=== PATIENT | male | born 1935 | race Caucasian/White ===

== ENCOUNTER → 2017-09-05 | Outpatient (CLI) | payer MEDICARE ==
[~2017-09-05] MED LIST: ALLOPURINOL100 MG PO; BENAZEPRIL HCL40 MG PO; CLONIDINE HCL0.1 MG PO; COLCHICINE0.6 MG PO; COZAAR50 MG PO; HYDRALAZINE HCL50 MG PO; INDOCIN50 MG PO; KEFLEX500 MG PO; METRONIDAZOLE500 MG PO; MILK OF MA400 MG/5 M PO; NEURONTIN100 MG PO; NORCO 5-325 TA1 EACH PO; NORVASC10 MG PO; TYLENOL WITH C1 EACH PO; VITAMIN C500 M1 PO; XARELTO15 MG PO; [UNRECOGNIZED DRUG - OTHER]
== END ==
LOC: RAD 14:11
DX: M79.89 Other specified soft tissue disorders (principal); M79.604 Pain in right leg
CPT/HCPCS: 93971

== ENCOUNTER 2017-09-11 17:20 | Emergency (ER) | payer MEDICARE ==
[~2017-09-11] VITALS: Ht 182.9 cm; Wt 93.4 kg
[2017-09-11] MEDS ORDERED: LORAZEPAM INJ 2 MG/ML VIAL IV ONE (18:00)
[2017-09-11] MEDS ORDERED: ASPIRIN 81 MG CHEW TAB PO ONE (18:00)
[2017-09-11 18:06] LABS: BASOPHILS % 0.6 % (0.0-1.0); EOSINOPHILS # (AUTO) 0.2 (0.0-0.4); EOSINOPHILS % 2.8 % (0.0-6.0); HEMATOCRIT 39.8 % (38.2-49.6); HEMOGLOBIN 13.5 g/dL (14.0-18.0); LYMPHOCYTES # (AUTO) 1.4 (1.0-3.2); LYMPHOCYTES % 21.7 % (18.0-39.1); MEAN CORPUSCULAR HEMOGLOBIN 32.7 pg (28-32); MEAN CORPUSCULAR HGB CONC 33.9 g/dL (31-35); MEAN CORPUSCULAR VOLUME 96.4 fL (81-99); MONOCYTES # (AUTO) 0.7 (0.2-0.8); MONOCYTES % 10.2 % (4.4-11.3); NEUTROPHILS # (AUTO) 4.1 (2.1-6.9); NEUTROPHILS % 64.4 % (38.7-80.0); PLATELET COUNT 163 x10e3/uL (140-360); RED BLOOD COUNT 4.13 x10e6/uL (4.3-5.7); RED CELL DISTRIBUTION WIDTH 14.5 % (11.7-14.4)
[2017-09-11 18:10] LABS: INR 1.54; PROTHROMBIN TIME 17.4 seconds (11.9-14.5)
[2017-09-11 18:11] LABS: PARTIAL THROMBOPLASTIN TIME 37.7 seconds (23.8-35.5)
[2017-09-11 18:20] LABS: ALBUMIN 3.5 g/dL (3.5-5.0); ALBUMIN/GLOBULIN RATIO 1.2 (0.8-2.0); ANION GAP 12.8 mmol/L (8-16); CALCIUM 9.8 mg/dL (8.4-10.2); CREATININE, SERUM 1.38 mg/dL (0.72-1.25); POTASSIUM 3.8 mmol/L (3.5-5.1)
--- NOTE | 2017-09-11 20:02 | Diagnostic Imaging Report ---
RIGHT ANKLE - 3 VIEWS HISTORY: Pain COMPARISON: None available. FINDINGS: Suboptimal positioning partially limits the evaluation. Bones: Chronic appearing healed avulsion fracture deformity at the tip of the lateral malleolus. Moderate plantar calcaneal and dorsal calcaneal enthesophytes. Mild varus alignment of the tibiotalar joint. Joints: Multifocal degenerative changes, most notably moderate of the tibiotalar joint. Soft tissues: Nonspecific soft tissue swelling. IMPRESSION: 1. Nonspecific soft tissue swelling. 2. 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 3. Chronic calcaneal enthesopathy. Signed by: Dr. Vignesh Pulido D.O., M.M.M. on 09/11/2017 7:58 PM
== END 2017-09-11 21:46 | disposition home or self-care (01) ==
LOC: ER 17:20
DX: S86.111A Strain of other muscle(s) and tendon(s) of posterior muscle group at lower leg level, right leg, initial encounter (principal); W17.2XXA Fall into hole, initial encounter; Z79.01 Long term (current) use of anticoagulants; Z95.5 Presence of coronary angioplasty implant and graft; Z95.0 Presence of cardiac pacemaker; Y93.H2 Activity, gardening and landscaping; Y92.096 Garden or yard of other non-institutional residence as the place of occurrence of the external cause
CPT/HCPCS: 36415; 80053; 83605; 85025; 85610; 85730; 99284

== ENCOUNTER → 2017-11-27 | Day surgery (SDC) | payer MEDICARE ==
[2017-11-22 09:26] LABS: BASOPHILS # (AUTO) 0.1 (0.0-0.1); BASOPHILS % 0.8 % (0.0-1.0); EOSINOPHILS # (AUTO) 0.1 (0.0-0.4); EOSINOPHILS % 2.1 % (0.0-6.0); HEMATOCRIT 41.8 % (38.2-49.6); HEMOGLOBIN 14.3 g/dL (14.0-18.0); LYMPHOCYTES # (AUTO) 1.5 (1.0-3.2); MEAN CORPUSCULAR HEMOGLOBIN 32.8 pg (28-32); MEAN CORPUSCULAR HGB CONC 34.2 g/dL (31-35); MEAN CORPUSCULAR VOLUME 95.9 fL (81-99); MONOCYTES # (AUTO) 0.7 (0.2-0.8); MONOCYTES % 10.6 % (4.4-11.3); NEUTROPHILS # (AUTO) 4.1 (2.1-6.9); NEUTROPHILS % 63.2 % (38.7-80.0); PLATELET COUNT 162 x10e3/uL (140-360); RED BLOOD COUNT 4.36 x10e6/uL (4.3-5.7); RED CELL DISTRIBUTION WIDTH 14.3 % (11.7-14.4)
[~2017-11-27] MED LIST changes: +AMLODIPINE BESYL5 MG PO; +FENTANYL CITRATE/PF 100MCG/2 ML INJ ONE; +LIDOCAINE HCL 2% LOCAL INJ 5 ML SDV VIAL INJ ONE; +PROPOFOL IV EMULSION 10 MG/ML 50 ML VIAL ONE
--- NOTE | 2017-11-27 12:55 | Operative Report ---
DATE OF PROCEDURE: November 27, 2017 REFERRING PHYSICIAN: Dr. Oxana Maloney PROCEDURE PERFORMED: Colonoscopy and polypectomy. INDICATIONS FOR COLONOSCOPY: Colorectal cancer screening, personal history of colon polyps, occult blood in stool. MEDICATION: Patient was done under MAC. Please see anesthesiologist's note. PROCEDURE: With patient in the left lateral decubitus position, flexible fiberoptic Olympus colonoscope was inserted into the rectum with ease and advanced all the way to the cecum. It was then withdrawn slowly. Mucosa overlying the cecum and ascending colon grossly appeared to be within normal limits. Two polyps were hot biopsied from the transverse colon. One polyp was snared from the descending colon. Diverticular disease was noted to involve the descending and the sigmoid. Four minute hyperplastic appearing polyps were hot biopsied from the rectum. The scope was then retroflexed into the distal rectum and small internal hemorrhoids were noted, none of which was actively bleeding. The scope was then straightened out, it was subsequently withdrawn. Patient tolerated the procedure well. IMPRESSION 1. Transverse colon polyps times 2 hot biopsied. 2. Descending colon polyp times 1 snared. 3. Diverticulosis. 4. Rectal polyps times 4 hot biopsied. 5. Internal hemorrhoids, none actively bleeding. PLAN: Follow up histology. Initiate high-fiber low-fat diet. Initiate high-fiber supplement. No need for a followup colonoscopy considering patient's age and current findings. Job#: [id number] cc:OXANA MALONEY MD
== END | disposition home or self-care (01) ==
LOC: OR 08:12
PROVIDERS: ATTEND Internal Medicine Gastroenterology
DX: R19.5 Other fecal abnormalities (principal); D12.3 Benign neoplasm of transverse colon; D12.4 Benign neoplasm of descending colon; K62.1 Rectal polyp; K57.30 Diverticulosis of large intestine without perforation or abscess without bleeding; K62.5 Hemorrhage of anus and rectum; K64.8 Other hemorrhoids; G47.33 Obstructive sleep apnea (adult) (pediatric); I25.2 Old myocardial infarction; I10 Essential (primary) hypertension; I25.10 Atherosclerotic heart disease of native coronary artery without angina pectoris; Z01.810 Encounter for preprocedural cardiovascular examination; Z01.812 Encounter for preprocedural laboratory examination; Z79.02 Long term (current) use of antithrombotics/antiplatelets; Z95.5 Presence of coronary angioplasty implant and graft; Z95.0 Presence of cardiac pacemaker
CPT/HCPCS: 36415; 45384; 45385; 85025; 88305; 93005; J2001; 45378

== ENCOUNTER → 2018-03-16 | Outpatient (CLI) | payer MEDICARE ==
[~2018-03-16] MED LIST changes: -FENTANYL CITRATE/PF 100MCG/2 ML INJ ONE; -LIDOCAINE HCL 2% LOCAL INJ 5 ML SDV VIAL INJ ONE; -PROPOFOL IV EMULSION 10 MG/ML 50 ML VIAL ONE
--- NOTE | 2018-03-16 12:31 | Diagnostic Imaging Report ---
EXAMINATION: PA and lateral views of the chest. COMPARISON: January 17, 2016 CLINICAL HISTORY: cough DISCUSSION: Lines/tubes: Dual-lead pacemaker. Lungs: The lungs are well inflated and clear. No pneumonia or pulmonary edema. Pleura: Small left pleural effusion. Heart and mediastinum: Prominent heart size. Bones and soft tissues: No acute bony abnormalities. IMPRESSION: No acute cardiopulmonary abnormalities. Small left pleural effusion. Signed by: Dr. Chi Raymond M.D. on 03/16/2018 12:27 PM
== END ==
LOC: RAD 11:36
DX: R05 Cough (principal); I25.10 Atherosclerotic heart disease of native coronary artery without angina pectoris
CPT/HCPCS: 71046

== ENCOUNTER → 2018-05-21 | Outpatient (CLI) | payer MEDICARE ==
--- NOTE | 2018-05-21 17:24 | Diagnostic Imaging Report ---
EXAMINATION: PA and lateral views of the chest. COMPARISON: Chest 2 views 03/16/2018, chest CT 01/17/2016 CLINICAL HISTORY: Chest congestion for one week DISCUSSION: Lines/tubes: Unchanged left upper chest multilead cardiac device. Lungs: Lungs are well-inflated. No consolidation or pulmonary edema. Pleura: Stable posterior elevation of the left hemidiaphragm, due to mild eventration. Stable mild blunting of the left posterior costophrenic sulcus, likely reflecting small pleural effusion. Heart and mediastinum: Stable enlargement of the cardiac silhouette. Pulmonary vasculature is normal. Bones and soft tissues: No acute bony abnormalities. Degenerative changes in the thoracic spine IMPRESSION: No acute cardiopulmonary abnormalities. Signed by: Dr. Dale Powell M.D. on 05/21/2018 5:21 PM
== END ==
LOC: RAD 14:20
DX: R09.89 Other specified symptoms and signs involving the circulatory and respiratory systems (principal)
CPT/HCPCS: 71046

== ENCOUNTER → 2019-08-12 | Outpatient (CLI) | payer MEDICARE ==
--- NOTE | 2019-08-12 17:09 | Diagnostic Imaging Report ---
EXAMINATION: CHEST 2 VIEWS INDICATION: Cough, chest pain COMPARISON: Chest radiograph 05/21/2018 FINDINGS: LINES/TUBES:Left chest pacer. LUNGS:The lungs are hyperinflated. No focal consolidation or pulmonary edema. Mild bibasilar subsegmental atelectasis. PLEURA:No pleural effusion or pneumothorax. MEDIASTINUM:The cardiomediastinal silhouette appears normal in size and shape. Atherosclerotic calcifications of the thoracic aorta. BONES/SOFT TISSUES:No acute osseous injury. ABDOMEN:No free air under the diaphragm. IMPRESSION: Hyperinflated lungs. Mild bibasilar subsegmental atelectasis. No focal pneumonia or pulmonary edema. Signed by: Vadim Martin MD on 08/12/2019 5:06 PM
== END ==
LOC: RAD 15:56
PROVIDERS: ATTEND Otolaryngology
DX: J18.9 Pneumonia, unspecified organism (principal); R04.2 Hemoptysis
CPT/HCPCS: 71046

== ENCOUNTER → 2019-10-24 | Outpatient (CLI) | payer MEDICARE ==
--- NOTE | 2019-10-24 10:21 | Diagnostic Imaging Report ---
EXAMINATION: CHEST 2 VIEWS INDICATION: Hemoptysis COMPARISON: Chest radiograph 08/12/2019 FINDINGS: LINES/TUBES:Left chest pacer. LUNGS:The lungs are hyperinflated. Left basilar subsegmental atelectasis. No focal consolidation or pulmonary edema. PLEURA:No pleural effusion or pneumothorax. MEDIASTINUM:The cardiomediastinal silhouette appears unchanged in size and shape. Atherosclerotic calcifications of the thoracic aorta. BONES/SOFT TISSUES:No acute osseous injury. ABDOMEN:No free air under the diaphragm. IMPRESSION: Hyperinflated lungs. Left basilar subsegmental atelectasis. No focal pneumonia or pulmonary edema. Signed by: Vadim Martin MD on 10/24/2019 10:18 AM
== END ==
LOC: RAD 08:50
PROVIDERS: ATTEND Otolaryngology
DX: R04.2 Hemoptysis (principal)
CPT/HCPCS: 71046

== ENCOUNTER → 2020-03-24 | Day surgery (SDC) | payer MEDICARE ==
[2020-03-20 09:35] LABS: BASOPHILS # (AUTO) 0.1 (0.0-0.1); EOSINOPHILS # (AUTO) 0.6 (0.0-0.4); EOSINOPHILS % 7.6 % (0.0-6.0); HEMATOCRIT 35.9 % (38.2-49.6); HEMOGLOBIN 11.3 g/dL (14.0-18.0); LYMPHOCYTES # (AUTO) 1.8 (1.0-3.2); LYMPHOCYTES % 22.4 % (18.0-39.1); MEAN CORPUSCULAR HEMOGLOBIN 31.4 pg (28-32); MEAN CORPUSCULAR HGB CONC 31.5 g/dL (31-35); MEAN CORPUSCULAR VOLUME 99.7 fL (81-99); MONOCYTES # (AUTO) 0.9 (0.2-0.8); MONOCYTES % 10.9 % (4.4-11.3); NEUTROPHILS # (AUTO) 4.6 (2.1-6.9); NEUTROPHILS % 57.7 % (38.7-80.0); PLATELET COUNT 195 x10e3/uL (140-360); RED CELL DISTRIBUTION WIDTH 14.6 % (11.7-14.4)
[~2020-03-24] VITALS: Ht 182.9 cm; Wt 93.0 kg
[~2020-03-24] MED LIST changes: +ATORVASTATIN CA20 MG PO; +FAMOTIDINE20 MG PO; +FUROSEMIDE40 MG PO; +METOPROLOL TART25 MG PO; +OXYBUTYNIN CHLOR5 M1 PO; +POTASSIUM CHLO10 ME1 PO; +PROPOFOL IV EMULSION 10 MG/ML 20 ML VIAL ONE; +VITAMIN C1000 MG
[2020-03-24 12:30] VITALS: BP 159/90
[2020-03-24 13:03] LABS: ALBUMIN 3.5 g/dL (3.5-5.0); ALBUMIN/GLOBULIN RATIO 1.5 (0.8-2.0); ANION GAP 9.5 mmol/L (8-16); CALCIUM 8.9 mg/dL (8.4-10.2); CREATININE, SERUM 1.62 mg/dL (0.72-1.25); POTASSIUM 4.5 mmol/L (3.5-5.1)
[2020-03-24 13:15] LABS: BILIRUBIN,DIRECT 0.5 mg/dL (0.0-0.5)
== END | disposition home or self-care (01) ==
LOC: OR 09:39
PROVIDERS: ATTEND Internal Medicine Gastroenterology
DX: D64.89 Other specified anemias (principal); K29.50 Unspecified chronic gastritis without bleeding; R04.2 Hemoptysis; K20.90 Esophagitis, unspecified without bleeding; I85.00 Esophageal varices without bleeding; K44.9 Diaphragmatic hernia without obstruction or gangrene; K31.89 Other diseases of stomach and duodenum; R19.5 Other fecal abnormalities; Z86.010 Personal history of colon polyps; I10 Essential (primary) hypertension; I25.10 Atherosclerotic heart disease of native coronary artery without angina pectoris; Z01.810 Encounter for preprocedural cardiovascular examination; Z01.812 Encounter for preprocedural laboratory examination; Z20.828 Contact with and (suspected) exposure to other viral communicable diseases; Z68.28 Body mass index [BMI] 28.0-28.9, adult; Z95.0 Presence of cardiac pacemaker; Z87.19 Personal history of other diseases of the digestive system
CPT/HCPCS: 36415 ×2; 43239; 80053; 82248; 85025; 88305; 88312; 93005; J2704; U0002; 43235

== ENCOUNTER → 2020-03-30 | Outpatient (CLI) | payer MEDICARE ==
[~2020-03-30] MED LIST changes: -PROPOFOL IV EMULSION 10 MG/ML 20 ML VIAL ONE
--- NOTE | 2020-03-30 09:58 | Diagnostic Imaging Report ---
Abdominal Ultrasound limited Clinical Diagnosis: Esophagitis, gastritis Comparison: None available on the PACS. There is a CT abdomen from 01/17/2016 which is not accessible. Technique: Multiple transaxial and longitudinal images were obtained through the abdomen with real time ultrasonography. A low-frequency curvilinear transducer was utilized. Multiple images were submitted for interpretation. Report: The examination is limited because of large amounts of bowel gas. Liver: The liver measures 15.7 cm in the right midaxillary line. There are no focal masses or abnormal cysts. The echogenicity is increased. Gallbladder: The transverse diameter is normal cm. The wall measures 3 mm. There are no shadowing stones visualized. There is biliary sludge visualized. Sonographic Quinonez's sign is negative. Biliary tree: There is no evidence of intra or extra hepatic biliary ductal dilatation. The common bile duct measures 3 mm. Portal vein: The portal vein measures 9 mm. There is hepatopedal flow. Hepatic veins: Unremarkable. Pancreas: The pancreatic tail is not well seen secondary to overlying bowel gas. Ascites: Absent Pleural Effusion: Absent Right kidney: The right kidney measures 10.7 x 4.5 x 4.4 cm. There is no evidence of hydronephrosis, mass. There is a large 12.8 x 6.7 x 9.2 cm cyst with septations but no calcification or flow. IVC/Aorta: Partially seen segments demonstrate no abnormality. Impression: Limited exam because of bowel gas. Hepatomegaly with mild increase in echogenicity. Consider fatty infiltration. Sludge in the gallbladder but no calculi. There is a large cyst with septation in the right kidney. This most likely is a simple cyst however because of the limited ultrasound exam, further evaluation should be considered with contrast-enhanced CT or MRI. Unfortunately the previous CT is not available on the PACS for comparison. Signed by: Quinten Gibson MD on 03/30/2020 9:55 AM
== END ==
LOC: US 08:16
PROVIDERS: ATTEND Internal Medicine Gastroenterology
DX: K20.90 Esophagitis, unspecified without bleeding (principal); K29.70 Gastritis, unspecified, without bleeding; K63.89 Other specified diseases of intestine
CPT/HCPCS: 76705

== ENCOUNTER → 2020-08-10 | Day surgery (SDC) | payer MEDICARE ==
[2020-08-06 09:14] LABS: BASOPHILS # (AUTO) 0.1 (0.0-0.1); EOSINOPHILS # (AUTO) 0.5 (0.0-0.4); EOSINOPHILS % 7.6 % (0.0-6.0); HEMATOCRIT 41.2 % (38.2-49.6); HEMOGLOBIN 13.3 g/dL (14.0-18.0); LYMPHOCYTES # (AUTO) 1.3 (1.0-3.2); LYMPHOCYTES % 19.3 % (18.0-39.1); MEAN CORPUSCULAR HEMOGLOBIN 31.4 pg (28-32); MEAN CORPUSCULAR HGB CONC 32.3 g/dL (31-35); MEAN CORPUSCULAR VOLUME 97.4 fL (81-99); MONOCYTES # (AUTO) 0.7 (0.2-0.8); MONOCYTES % 9.5 % (4.4-11.3); NEUTROPHILS # (AUTO) 4.3 (2.1-6.9); NEUTROPHILS % 62.3 % (38.7-80.0); PLATELET COUNT 159 x10e3/uL (140-360); RED BLOOD COUNT 4.23 x10e6/uL (4.3-5.7); RED CELL DISTRIBUTION WIDTH 18.6 % (11.7-14.4)
[2020-08-06 09:35] LABS: INR 1.88; PROTHROMBIN TIME 23.1 seconds (11.9-14.5)
[2020-08-06 09:36] LABS: PARTIAL THROMBOPLASTIN TIME 43.3 seconds (23.8-35.5)
[2020-08-06 09:41] LABS: ALBUMIN 3.9 g/dL (3.5-5.0); ALBUMIN/GLOBULIN RATIO 1.3 (0.8-2.0); ANION GAP 13.1 mmol/L (8-16); CALCIUM 9.4 mg/dL (8.4-10.2); CREATININE, SERUM 1.82 mg/dL (0.72-1.25); POTASSIUM 4.1 mmol/L (3.5-5.1)
[~2020-08-10] VITALS: Ht 182.9 cm; Wt 98.0 kg
[2020-08-10] VITALS (9 sets, daily range): BP systolic 139–157; BP diastolic 68–91
[~2020-08-10] MED LIST changes: +CEFAZOLIN SOD 1 GM VIAL ONE; +FENTANYL CITRATE/PF 100MCG/2 ML INJ ONE; +GENTAMICIN SULFATE 40 MG/ML 2 ML VIAL ONE; +LIDOCAINE HCL 2% LOCAL 20 ML VIAL ONE; +MIDAZOLAM HCL 2 MG/2 ML VIAL ONE; +SODIUM CHLORIDE 0.9% 500ML 1,000 ML ONE; +SODIUM CHLORIDE 0.9% 500ML 500 ML ONE; +SODIUM CHLORIDE 0.9% 50ML 50 ML ONE
== END | disposition home or self-care (01) ==
LOC: CATH LAB 07:08
PROVIDERS: ATTEND Internal Medicine Cardiovascular Disease
DX: Z45.010 Encounter for checking and testing of cardiac pacemaker pulse generator [battery] (principal); I49.5 Sick sinus syndrome; I48.91 Unspecified atrial fibrillation; I25.10 Atherosclerotic heart disease of native coronary artery without angina pectoris; I10 Essential (primary) hypertension; Z01.810 Encounter for preprocedural cardiovascular examination; Z01.812 Encounter for preprocedural laboratory examination; Z01.818 Encounter for other preprocedural examination; Z20.822 Contact with and (suspected) exposure to COVID-19; Z79.02 Long term (current) use of antithrombotics/antiplatelets; Z95.5 Presence of coronary angioplasty implant and graft; Z87.01 Personal history of pneumonia (recurrent); Z82.49 Family history of ischemic heart disease and other diseases of the circulatory system
CPT/HCPCS: 33228; 36415; 71046; 80053; 85025; 85610; 85730; 93005; C1785; C1894; J0690; J1580; J2001; J2250; J3010; J7040; U0002; 33210; 99152; 99153

== ENCOUNTER → 2020-12-07 | Outpatient (CLI) | payer MEDICARE ==
[~2020-12-07] MED LIST changes: -CEFAZOLIN SOD 1 GM VIAL ONE; -FENTANYL CITRATE/PF 100MCG/2 ML INJ ONE; -GENTAMICIN SULFATE 40 MG/ML 2 ML VIAL ONE; -LIDOCAINE HCL 2% LOCAL 20 ML VIAL ONE; -MIDAZOLAM HCL 2 MG/2 ML VIAL ONE; -SODIUM CHLORIDE 0.9% 500ML 1,000 ML ONE; -SODIUM CHLORIDE 0.9% 500ML 500 ML ONE; -SODIUM CHLORIDE 0.9% 50ML 50 ML ONE
== END ==
LOC: US 07:14
DX: R10.31 Right lower quadrant pain (principal); M25.551 Pain in right hip
CPT/HCPCS: 76705

== ENCOUNTER 2021-02-13 10:28 | Emergency (ER) | payer MEDICARE, OTHER ==
[~2021-02-13] VITALS: Ht 182.9 cm; Wt 98.0 kg
[2021-02-13] MEDS ORDERED: FINASTERIDE5 MG PO (10:48)
[2021-02-13] MEDS ORDERED: FLOMAX0.4 MG PO (10:48)
[2021-02-13] MEDS ORDERED: PANTOPRAZOLE SO40 MG PO (10:48)
[2021-02-13 10:59] LABS: BASOPHILS % 0.3 % (0.0-1.0); EOSINOPHILS # (AUTO) 0.1 (0.0-0.4); EOSINOPHILS % 0.4 % (0.0-6.0); HEMATOCRIT 38.4 % (38.2-49.6); LYMPHOCYTES # (AUTO) 0.9 (1.0-3.2); LYMPHOCYTES % 6.3 % (18.0-39.1); MEAN CORPUSCULAR HEMOGLOBIN 34.3 pg (28-32); MEAN CORPUSCULAR HGB CONC 33.9 g/dL (31-35); MEAN CORPUSCULAR VOLUME 101.3 fL (81-99); MONOCYTES % 7.2 % (4.4-11.3); NEUTROPHILS # (AUTO) 11.8 (2.1-6.9); NEUTROPHILS % 85.1 % (38.7-80.0); PLATELET COUNT 130 x10e3/uL (140-360); RED BLOOD COUNT 3.79 x10e6/uL (4.3-5.7); RED CELL DISTRIBUTION WIDTH 15.9 % (11.7-14.4)
[2021-02-13] MEDS ORDERED: TETANUS/DIPHTHERIA TOX ADULT 0.5 ML SYR IM ONE (11:00)
[2021-02-13 11:16] LABS: ALBUMIN 3.4 g/dL (3.5-5.0); ANION GAP 17.1 mmol/L (8-16); CALCIUM 9.5 mg/dL (8.4-10.2); CREATININE, SERUM 2.23 mg/dL (0.72-1.25); POTASSIUM 4.1 mmol/L (3.5-5.1)
[2021-02-13] MEDS ORDERED: CEFTRIAXONE 1 GM VIAL IV ONE (14:00)
[2021-02-13] MEDS ORDERED: DOXYCYCLINE 100MG/NS 100ML 100 ML IV ONE (14:00)
[2021-02-13] MEDS ORDERED: CEFDINIR300 MG PO (14:02)
[2021-02-13] MEDS ORDERED: DOXYCYCLINE HY100 MG PO (14:02)
[2021-02-13] MEDS ORDERED: CEFTRIAXONE 1 GM in SODIUM CHLORIDE 0.9% 100 ML IV ONE (15:00)
[2021-02-13] MEDS ORDERED: ACETAMINOPHEN 325 MG TAB PO ONE (16:00)
[2021-02-13 16:26] VITALS: BP 131/65
== END 2021-02-13 16:31 | disposition home or self-care (01) ==
LOC: ER 10:40
DX: S51.012A Laceration without foreign body of left elbow, initial encounter (principal); S51.812A Laceration without foreign body of left forearm, initial encounter; W01.0XXA Fall on same level from slipping, tripping and stumbling without subsequent striking against object, initial encounter; Y93.01 Activity, walking, marching and hiking; Y92.008 Other place in unspecified non-institutional (private) residence as the place of occurrence of the external cause; J18.9 Pneumonia, unspecified organism; I10 Essential (primary) hypertension; I25.10 Atherosclerotic heart disease of native coronary artery without angina pectoris; K21.9 Gastro-esophageal reflux disease without esophagitis; M10.9 Gout, unspecified; Z95.810 Presence of automatic (implantable) cardiac defibrillator; Z95.5 Presence of coronary angioplasty implant and graft
CPT/HCPCS: 36415; 70450; 71045; 72125; 72170; 73080; 74176; 80053; 85025; 90471; 90714; 99284; J0696; J7050

== ENCOUNTER 2021-05-27 19:09 | Emergency (ER) | payer MEDICARE ==
[~2021-05-27] VITALS: Ht 182.9 cm; Wt 98.0 kg
[~2021-05-27 19:09] MED LIST changes: +CEFDINIR300 MG PO; +DOXYCYCLINE HY100 MG PO; +FINASTERIDE5 MG PO; +FLOMAX0.4 MG PO; +PANTOPRAZOLE SO40 MG PO
[2021-05-27] MEDS ORDERED: HYOSCYAMINE 0.125 MG TAB PO ONE (20:15)
[2021-05-27] MEDS ORDERED: CEFUROXIME250 MG PO (21:02)
[2021-05-27] MEDS ORDERED: PHENAZOPYRIDIN200 MG PO (21:03)
== END 2021-05-27 21:53 | disposition home or self-care (01) ==
LOC: FSED 19:17
DX: R33.9 Retention of urine, unspecified (principal); R31.9 Hematuria, unspecified; N32.89 Other specified disorders of bladder; N40.1 Benign prostatic hyperplasia with lower urinary tract symptoms; I10 Essential (primary) hypertension; D68.9 Coagulation defect, unspecified; I25.10 Atherosclerotic heart disease of native coronary artery without angina pectoris; M10.9 Gout, unspecified; Z95.5 Presence of coronary angioplasty implant and graft; Z95.810 Presence of automatic (implantable) cardiac defibrillator
CPT/HCPCS: 51700; 87086; 99283

== ENCOUNTER 2021-07-30 12:47 | Outpatient (RCR) | payer MEDICARE ==
[~2021-07-30 12:47] MED LIST changes: +CEFUROXIME250 MG PO; +PHENAZOPYRIDIN200 MG PO
== END 2021-08-05 ==
LOC: OT 12:47
PROVIDERS: ATTEND Specialist
DX: S46.012A Strain of muscle(s) and tendon(s) of the rotator cuff of left shoulder, initial encounter (principal); M19.012 Primary osteoarthritis, left shoulder

== ENCOUNTER 2022-01-14 05:33 | Emergency (ER) | payer MEDICARE ==
[~2022-01-14] VITALS: Ht 182.9 cm; Wt 98.0 kg
== END 2022-01-14 06:20 | disposition home or self-care (01) ==
LOC: ER 05:40
DX: K06.9 Disorder of gingiva and edentulous alveolar ridge, unspecified (principal); I10 Essential (primary) hypertension; I25.10 Atherosclerotic heart disease of native coronary artery without angina pectoris; K21.9 Gastro-esophageal reflux disease without esophagitis; M10.9 Gout, unspecified; Z95.5 Presence of coronary angioplasty implant and graft; Z95.810 Presence of automatic (implantable) cardiac defibrillator
CPT/HCPCS: 99282

== ENCOUNTER → 2022-08-18 | Outpatient (CLI) | payer MEDICARE | LOC: RAD 08:28 | PROVIDERS: ATTEND Internal Medicine | DX: R05.9 Cough, unspecified (principal) | CPT/HCPCS: 71046 ==

== ENCOUNTER 2023-04-07 13:58 | Emergency (ER) | payer MEDICARE ==
[~2023-04-07] VITALS: Ht 182.9 cm; Wt 98.0 kg
[2023-04-07] MEDS ORDERED: ONDANSETRON HCL INJ 2MG/ML 2ML 2 MG/ML VIAL IV STA (14:33)
[2023-04-07 14:39] LABS: BASOPHILS # (AUTO) 0.1 (0.0-0.1); BASOPHILS % 0.7 % (0.0-1.0); EOSINOPHILS # (AUTO) 0.4 (0.0-0.4); EOSINOPHILS % 5.7 % (0.0-6.0); HEMOGLOBIN 13.7 g/dL (14.0-18.0); LYMPHOCYTES # (AUTO) 1.8 (1.0-3.2); LYMPHOCYTES % 25.4 % (18.0-39.1); MEAN CORPUSCULAR HEMOGLOBIN 33.7 pg (28-32); MEAN CORPUSCULAR HGB CONC 33.4 g/dL (31-35); MONOCYTES # (AUTO) 0.7 (0.2-0.8); MONOCYTES % 9.9 % (4.4-11.3); NEUTROPHILS # (AUTO) 4.2 (2.1-6.9); NEUTROPHILS % 57.9 % (38.7-80.0); PLATELET COUNT 145 x10e3/uL (140-360); RED BLOOD COUNT 4.06 x10e6/uL (4.3-5.7); RED CELL DISTRIBUTION WIDTH 14.1 % (11.7-14.4); WHITE BLOOD COUNT 7.25 x10e3/uL (4.8-10.8)
[2023-04-07] MEDS ORDERED: Morphine 4mg INJECTION 4 MG/ML INJ IV ONE (14:45)
[2023-04-07] MEDS ORDERED: SODIUM CHLORIDE 0.9% 1000ML 1,000 ML IV ONE (14:45)
[2023-04-07 14:58] LABS: ALBUMIN/GLOBULIN RATIO 1.5 (0.8-2.0); ANION GAP 15.1 mmol/L (8-16); CALCIUM 10.2 mg/dL (8.4-10.2); CREATININE, SERUM 1.65 mg/dL (0.72-1.25); POTASSIUM 4.1 mmol/L (3.5-5.1); TOTAL PROTEIN 6.7 g/dL (6.5-8.1)
[2023-04-07 15:54] LABS: BILIRUBIN,URINE NEGATIVE (NEGATIVE); CLARITY,URINE CLEAR (CLEAR); COLOR,URINE YELLOW (YELLOW); GLUCOSE, URINE NEGATIVE (NEGATIVE); KETONES,URINE NEGATIVE (NEGATIVE); LEUKOCYTE ESTERASE ,URINE TRACE (NEGATIVE); NITRITE,URINE NEGATIVE (NEGATIVE); PH,URINE 6.5 (5 - 7); PROTEIN,URINE DIPSTICK NEGATIVE (NEGATIVE); URINE UROBILINOGEN 0.2 mg/dL (0.2 - 1)
[2023-04-07 16:02] LABS: WBC,URINE (MAN) 0-5 /HPF (0-5)
[2023-04-07 19:00] VITALS: BP 148/84; PULSE 70; RESP 13; TEMP 98.6; O2SAT 100
== END 2023-04-07 19:32 | disposition home or self-care (01) ==
LOC: ER 14:19
DX: R10.30 Lower abdominal pain, unspecified (principal); K59.00 Constipation, unspecified; K80.20 Calculus of gallbladder without cholecystitis without obstruction; I10 Essential (primary) hypertension; I48.91 Unspecified atrial fibrillation; I25.10 Atherosclerotic heart disease of native coronary artery without angina pectoris; K21.9 Gastro-esophageal reflux disease without esophagitis; M10.9 Gout, unspecified
CPT/HCPCS: 36415; 74176; 76705; 80053; 81001; 83690; 85025; 93005; 99284; J2270; J2405; J7030

== ENCOUNTER → 2024-05-27 | Outpatient (REF) | payer MEDICARE | LOC: RAD 13:50 | PROVIDERS: ATTEND Internal Medicine | DX: R05.9 Cough, unspecified (principal) | CPT/HCPCS: 71046 ==